=== PATIENT | female | born 1940 | race Caucasian/White ===

== ENCOUNTER 2017-04-10 16:36 | Emergency (ER) | payer MEDICARE, BC ==
[2017-04-10] MEDS ORDERED: NITROGLYCERIN 0.4 MG TAB SL PRN (16:55)
[2017-04-10] MEDS ORDERED: ASPIRIN 81 MG CHEWABLE CTB PO STA (16:55)
[2017-04-10] MEDS ORDERED: SODIUM CHLORIDE 0.9% FLUSH 10 ML SOL IV PRN (16:55)
[2017-04-10 17:13] LABS: BASOPHILS % (AUTO) 2 % (0-3); EOSINOPHILS % (AUTO) 3 % (0-9); HEMATOCRIT 41 % (35-47); MEAN CORPUSCULAR HGB CONC 34.7 gm/dl (32.0-36.0); MEAN CORPUSCULAR VOLUME 88 fL (81-99); MONOCYTES % (AUTO) 9.8 % (0-12); NEUTROPHILS % (AUTO) 64.7 % (37-80)
[2017-04-10 17:25] LABS: CALCIUM 9.2 mg/dl (8.5-10.1); GLOM FILT RATE 51 mL/min (>60); SODIUM 140 mMol/L (136-145)
[2017-04-10 17:57] VITALS: BP 147/76; PULSE 86; RESP 16; O2SAT 96
[2017-04-10 19:50] VITALS: TEMP 96.9
== END 2017-04-10 18:10 | disposition home or self-care (01) | DRG 313 ==
LOC: SUPCPDRO 16:36 → ED 16:36
DX: R07.9 Chest pain, unspecified (principal); R06.02 Shortness of breath
CPT/HCPCS: 36415; 71010; 80048; 82550; 83880; 84484; 85025; 85610; 93005; 99284

== ENCOUNTER 2018-01-01 23:56 | Emergency (ER) | payer MEDICARE, BC ==
[2018-01-02] MEDS ORDERED: ONDANSETRON HCL 4 MG/2 ML SOL IV ONE (00:08)
[2018-01-02] MEDS ORDERED: SODIUM CHLORIDE 0.9% 500 ML 500 ML IV ONE (00:10)
[2018-01-02 00:24] LABS: BASOPHILS % (AUTO) 1 % (0-3); EOSINOPHILS % (AUTO) 1 % (0-9); HEMATOCRIT 43 % (35-47); MEAN CORPUSCULAR HGB CONC 34.2 gm/dl (32.0-36.0); MEAN CORPUSCULAR VOLUME 88 fL (81-99); MONOCYTES % (AUTO) 5.5 % (0-12); NEUTROPHILS % (AUTO) 84.1 % (37-80)
[2018-01-02 00:33] LABS: CALCIUM 9.2 mg/dl (8.5-10.1); POTASSIUM 3.2 mMol/L (3.5-5.1)
[2018-01-02] MEDS ORDERED: ONDANSETRON HCL 4 MG/2 ML SOL ONE (00:36)
[2018-01-02] MEDS ORDERED: PROMETHAZINE HYDROCHLORIDE 25 MG/ML SOL IV ONE (01:21)
[2018-01-02] MEDS ORDERED: PROMETHAZINE HYDROCHLORIDE 25 MG/ML SOL ONE (01:23)
[2018-01-02 01:56] LABS: APPEARANCE,URINE Clear; BILIRUBIN,URINE NEGATIVE (NEGATIVE); COLOR,URINE Yellow; GLUCOSE, URINE (UA) NEGATIVE (NEGATIVE); KETONES,URINE NEGATIVE (NEGATIVE); LEUKOCYTE ESTERASE ,URINE NEGATIVE (NEGATIVE); NITRATE,URINE NEGATIVE (NEGATIVE); OCCULT BLOOD,URINE NEGATIVE (NEG-TRACE); PH,URINE 5.5; UROBILINOGEN,URINE 0.2 (0.2-1.0 EU)
[2018-01-02 02:55] LABS: RBC,URINE 0-1 (0-3AV/HPF); WBC,URINE NEGATIVE (0-5AV/HPF)
[2018-01-02 04:01] VITALS: BP 147/79; PULSE 76; RESP 16; TEMP 97; O2SAT 96
== END 2018-01-02 03:17 | disposition home or self-care (01) | DRG 312 ==
LOC: ED 23:56
DX: R55 Syncope and collapse (principal); E86.0 Dehydration; R11.10 Vomiting, unspecified
CPT/HCPCS: 70450; 80048; 81001; 83735; 85025; 93005; 99285; J2405; J2550

== ENCOUNTER 2018-01-02 08:40 | Day surgery (SDC) | payer MEDICARE, BC ==
[2018-01-02 00:24] LABS: BASOPHILS % (AUTO) 1 % (0-3); EOSINOPHILS % (AUTO) 1 % (0-9); HEMATOCRIT 43 % (35-47); MEAN CORPUSCULAR HGB CONC 34.2 gm/dl (32.0-36.0); MEAN CORPUSCULAR VOLUME 88 fL (81-99); MONOCYTES % (AUTO) 5.5 % (0-12); NEUTROPHILS % (AUTO) 84.1 % (37-80)
[2018-01-02 00:33] LABS: CALCIUM 9.2 mg/dl (8.5-10.1); POTASSIUM 3.2 mMol/L (3.5-5.1)
[2018-01-02 01:56] LABS: APPEARANCE,URINE Clear; BILIRUBIN,URINE NEGATIVE (NEGATIVE); COLOR,URINE Yellow; GLUCOSE, URINE (UA) NEGATIVE (NEGATIVE); KETONES,URINE NEGATIVE (NEGATIVE); LEUKOCYTE ESTERASE ,URINE NEGATIVE (NEGATIVE); NITRATE,URINE NEGATIVE (NEGATIVE); OCCULT BLOOD,URINE NEGATIVE (NEG-TRACE); PH,URINE 5.5; UROBILINOGEN,URINE 0.2 (0.2-1.0 EU)
[2018-01-02 02:55] LABS: RBC,URINE 0-1 (0-3AV/HPF); WBC,URINE NEGATIVE (0-5AV/HPF)
[~2018-01-02 08:40] MED LIST: LIDOCAINE HCL 1% MPF SOL ONE; PROPOFOL 500 MG/50 ML EMU IV ONE
[2018-01-02 10:46] VITALS: BP 136/76; PULSE 83; RESP 18; TEMP 97.5; O2SAT 96
== END 2018-01-02 11:20 | disposition home or self-care (01) | DRG 951 ==
LOC: SURG 08:40
PROVIDERS: ATTEND Surgery
DX: Z12.11 Encounter for screening for malignant neoplasm of colon (principal); E86.0 Dehydration; E11.9 Type 2 diabetes mellitus without complications; D12.2 Benign neoplasm of ascending colon; Z86.010 Personal history of colon polyps; K57.30 Diverticulosis of large intestine without perforation or abscess without bleeding; R55 Syncope and collapse; R11.10 Vomiting, unspecified
CPT/HCPCS: 36415; 70450; 80048; 81001; 83735; 85025; 93005; 96365; 96374; 96375; 99284; 99285; J2405; J2550; J2001; J2704

== ENCOUNTER 2018-12-08 04:46 | Emergency (ER) | payer MEDICARE, BC ==
[2018-12-08 04:52] VITALS: RESP 20
[2018-12-08] MEDS ORDERED: SODIUM CHLORIDE 0.9% 1000ML 1,000 ML IV ONE ×2 (05:08→06:15)
[2018-12-08] MEDS ORDERED: MORPHINE SULFATE 10 MG/ML SOL IV ONE (05:08)
[2018-12-08] MEDS ORDERED: ONDANSETRON HCL 4 MG/2 ML SOL IV ONE (05:08)
[2018-12-08] MEDS ORDERED: KETOROLAC TROMETHAMINE 30 MG/ML SOL IV ONE (05:08)
[2018-12-08] MEDS ORDERED: MORPHINE SULFATE 10 MG/ML SOL ONE (05:19)
[2018-12-08] MEDS ORDERED: KETOROLAC TROMETHAMINE 30 MG/ML SOL ONE (05:19)
[2018-12-08] MEDS ORDERED: ONDANSETRON HCL 4 MG/2 ML SOL ONE (05:19)
[2018-12-08 05:52] LABS: BASOPHILS % (AUTO) 2 % (0-3); EOSINOPHILS % (AUTO) 2 % (0-9); HEMATOCRIT 43 % (35-47); HEMOGLOBIN 14.2 gm/dl (12.0-15.5); LACTIC ACID 2.3 mMol/L (0.0-2.0); LYMPHOCYTES % (AUTO) 18.6 % (10-50); MEAN CORPUSCULAR HEMOGLOBIN 29.8 pg (27.0-32.0); MEAN CORPUSCULAR HGB CONC 33.3 gm/dl (32.0-36.0); MEAN CORPUSCULAR VOLUME 89 fL (81-99); MONOCYTES % (AUTO) 8.8 % (0-12); NEUTROPHILS % (AUTO) 68.7 % (37-80)
[2018-12-08 06:11] LABS: APPEARANCE,URINE SL CLOUDY; BILIRUBIN,URINE NEGATIVE (NEGATIVE); COLOR,URINE YELLOW; GLUCOSE, URINE (UA) NEGATIVE (NEGATIVE); KETONES,URINE NEGATIVE (NEGATIVE); NITRATE,URINE NEGATIVE (NEGATIVE); OCCULT BLOOD,URINE 3+ (NEG-TRACE); UROBILINOGEN,URINE NORMAL (0.2-1.0 EU)
[2018-12-08 06:12] LABS: BACTERIA TRACE (< 1+); CRYSTALS NEGATIVE (0-3 AVE/HPF); LEUKOCYTE ESTERASE ,URINE TRACE (NEGATIVE); RBC,URINE 95-100 (0-3AV/HPF)
[2018-12-08 06:16] LABS: ALBUMIN 3.5 gm/dl (3.4-5.0); BILIRUBIN,TOTAL 0.4 mg/dl (0.2-1.0); CALCIUM 9.1 mg/dl (8.5-10.1); CARBON DIOXIDE 25.9 mEq/L (21-32); CREATININE 1.15 mg/dl (0.60-1.00); POTASSIUM 3.9 mMol/L (3.5-5.1)
[2018-12-08 06:18] VITALS: BP 142/87; PULSE 77; TEMP 97; O2SAT 95
== END 2018-12-08 07:25 | disposition home or self-care (01) | DRG 694 ==
LOC: ED 04:46
DX: N20.1 Calculus of ureter (principal)
CPT/HCPCS: 36415; 74176; 80053; 81001; 85025; 87088; 96365; 96366; 96374; 96375; 99284; J1885; J2270; J2405